=== PATIENT | female | born 1995 | race Two or more races ===

== ENCOUNTER 2022-12-20 04:09 | Emergency (ER) | payer BC ==
[~2022-12-20] VITALS: Ht 165.1 cm; Wt 68.0 kg
--- NOTE | 2022-12-20 04:09 | NUR ---
BIBBOYFRIEND C/O LEFT ARM PAIN S/P "FALLING OFF WALL". PT NOTED TO HAVE HEAVY SMELL OF ALCOHOL. CRYING/GRIMACING AND STATES SHE IS UNABLE TO MOVE HER LEFT ARM. PLACED IN BED, AWAITING MD MOSQUEDA.
[2022-12-20] MEDS ORDERED: ACETAMINOPHEN W/ CODEINE#3 1 EA TABLET ONE (04:45)
--- NOTE | 2022-12-20 04:45 | NUR ---
XR AT BEDSIDE
[2022-12-20] MEDS ORDERED: ACETAMINOPHEN W/ CODEINE#3 1 EA TABLET PO ONE (05:00)
--- NOTE | 2022-12-20 05:05 | NUR ---
20GA TO RIGHT FOREARM ESTABLISHED
[2022-12-20] MEDS ORDERED: PROPOFOL 20 ML IV ONE (05:09)
--- NOTE | 2022-12-20 05:10 | NUR ---
MODERATE SEDATION AT BEDSIDE TO REDUCE LEFT RADIUS, ULNA FRACTURE DISLOCATION. MD, RT, RN, EMT AT BEDSIDE FOR PROCEDURE.
[2022-12-20] MEDS ORDERED: IV NS 0.9% 1,000 ML BAG IV ONE (05:30)
[2022-12-20] MEDS ORDERED: PROPOFOL 200 MG/20 ML VIAL IV ONE (05:30)
[2022-12-20] MEDS ORDERED: HYDR-3972 PO (05:55)
--- NOTE | 2022-12-20 06:00 | NUR ---
XR AT BEDSIDE
[2022-12-20] MEDS ORDERED: HYDR-3980 PO (06:02)
--- NOTE | 2022-12-20 07:17 | NUR ---
REPORT GIVEN TO LISA PAREDES FOR ANGIE
--- NOTE | 2022-12-20 07:43 | NUR ---
chava [phone] out of stock, called pharm. said they will fill it up
[2022-12-20] MEDS ORDERED: HYDROCODONE/APAP 5/325MG TABLET PO ONE (08:00)
--- NOTE | 2022-12-20 08:00 | NUR ---
DR MEZA NOTIFIED REGARDING BRASHEAR [phone] OUT OF STOCK
--- NOTE | 2022-12-20 08:14 | NUR ---
IV removed. Catheter intact and site benign. Pressure and 4x4 applied to site. No bleeding noted.
[2022-12-20] MEDS ORDERED: HYDROCODONE/APAP 5/325MG TABLET ONE (08:16)
[2022-12-20 08:24] VITALS: BP 120/82; TEMP 98.2; O2SAT 97
--- NOTE | 2022-12-20 08:24 | NUR ---
DPatient discharged to home in stable condition. Written and verbal after care instructions given. Patient verbalizes understanding of instruction.
== END 2022-12-20 08:25 | disposition home or self-care (01) ==
LOC: ER 04:11
DX: S52.002A Unspecified fracture of upper end of left ulna, initial encounter for closed fracture (principal); W13.8XXA Fall from, out of or through other building or structure, initial encounter; Y93.89 Activity, other specified; Y92.89 Other specified places as the place of occurrence of the external cause; Y99.8 Other external cause status
CPT/HCPCS: 99285; 25535; 96360; 99152; 73090 ×2; 73060; J2704; J7040; G0500